=== PATIENT | male | born 1970 | race Caucasian/White ===

== ENCOUNTER → 2017-06-01 | Outpatient (CLI) | payer SELFPAY ==
--- NOTE | 2017-06-01 17:22 | DI ---
History: Trauma. Low back pain. Comparison, April 15, 2015 Findings: There is mild intervertebral disc space narrowing L2-3, and L3-4 unchanged as compared with April 14, 2015. There are small endplate osteophyte formation from L2-L4 unchanged. There is no compression fracture No spondylolisthesis is demonstrated. there are no pars interarticularis defects. Note is made of calcification of the abdominal aorta. SI joints unremarkable Impression No acute injury Mild intervertebral disc space narrowing L2-3 and L3-4 Mild osteophyte formation No significant changes compared to previous study of April 15, 2015
== END ==
LOC: MOB RAD 16:26
PROVIDERS: ATTEND Physician Assistant Medical
DX: S39.92XA Unspecified injury of lower back, initial encounter (principal); S39.012A Strain of muscle, fascia and tendon of lower back, initial encounter; S30.0XXA Contusion of lower back and pelvis, initial encounter; W18.09XA Striking against other object with subsequent fall, initial encounter; Y93.89 Activity, other specified; Y92.018 Other place in single-family (private) house as the place of occurrence of the external cause
CPT/HCPCS: 72110